=== PATIENT | male | born 1985 | race African-American/Black ===

== ENCOUNTER 2018-12-23 23:54 | Emergency (ER) | payer SELFPAY ==
[2018-12-24] MEDS ORDERED: Rabies Vaccine Human 2.5 UNITS VIAL IM ONE (00:45)
== END 2018-12-24 02:11 | disposition home or self-care (01) ==
LOC: ERS 23:54
DX: S61.451A Open bite of right hand, initial encounter (principal); F17.210 Nicotine dependence, cigarettes, uncomplicated; W55.01XA Bitten by cat, initial encounter
CPT/HCPCS: 90376; 90471; 90675; 96372